=== PATIENT | female | born 1980 | race Caucasian/White ===

== ENCOUNTER 2016-09-15 19:41 | Emergency (ER) | payer OTHER ==
--- NOTE | 2016-09-15 20:23 | ERNOTE ---
Lower Extremity HPI - Narrative Date of Service: 09/15/16 - General Lower Extremities Pain: foot: left Time Seen by Provider: 09/15/16 19:51 Source: patient Exam Limitations: no limitations - Immun/Allergies/Home Medications Immunizations: IMMUNIZATION HX Immunizations Up to Date Yes History of Influenza Vaccine Yes Hx Pneumococcal Vaccination No Allergies/Adverse Reactions: Allergies Allergy/AdvReac Type Severity Reaction Status Date / Time codeine Allergy Itching Verified 09/15/16 19:55 Home Medications: HOME MEDICATIONS FLUoxetine HCL [Prozac] 10 mg PO DAILY 09/15/16 [Last Taken Unknown] HYDROcodone/ACETAMINOPHEN [Ventura 5-325] 1 each PO Q8H PRN #8 tablet 09/15/16 [ Last Taken Unknown] - History of Present Illness Narrative: Patient presents to the ED for left foot and toe pain. She relates that she kicked a box today. It was a heavy box. She had immediate pain in the right toe and lateral foot. no ankle pain. no other injuries. No focal N/T/W. Pain worse with movement and palpation. No laceration. No fall. No other pain. Pain moderate right now. She relates she has broken her little toe many times in the past. Occurred: other - today Location of Incident: home Method of Injury: Reports: direct blow Loss of Consciousness: Reports: no loss of consciousness Modifying Factors - (Improves): Reports: rest Modifying Factors - (Worsens): Reports: movement Associated Symptoms: Denies: unable to bear weight, weakness, sensory loss Other Injuries: Reports: none Subsequent Symptoms: Denies: sensory loss, numbness, motor loss Prior Treament: Denies: recently seen Review of Systems - Review of Systems Constitutional: Absent: fever - Patient's Past Medical History Patient History - Medical: No pertinent hx Patient History - Cardiac/Respiratory: No pertinent hx Patient History - Cancer: No Hx of Cancer Patient History - Surgical Procedures: , D & C Patient History - Other: None - Social History Living Situations: home Psych History: Hx of Anxiety, Hx of Depression, Current tx/ever been on anti- depressants or anti-anxiety meds Smoking Status: Former smoker Have you smoked in the past 12 months: No Alcohol Use: rarely Drug Use: none - Immunizations Immunizations Up to Date: Yes Hx Pneumococcal Vaccination: No History of Influenza Vaccine: Yes Physical Exam - Physical Exam General Appearance: Present: alert, no apparent distress Eye Exam: Normal inspection: bilateral Cardiovascular/Chest: Present: normal peripheral pulses Extremity Exam: Present: other - Tenderness lateral aspect of foot diffuselt. No laceration. Strong DP pulse. No ankle tendenress or proximal tenderness. Achilles intact by palpation. No nailbed injury. No gross instability of any joints. Neurological Exam: Present: alert, normal mood/affect, no motor/sensory deficits , other - pain limits exam somewhat, no clear acute focal motor or sensory deficits. Skin Exam: Present: normal color, warm/dry, other - no laceration ED Progress - Vital Signs Vital Signs: Vital Signs 09/15/16 19:51 Temperature 37.2 C Pulse Rate 106 H Respiratory 18 Rate Blood Pressure 147/75 O2 Sat by Pulse 99 Oximetry - X-Ray X-Ray #1 X-Ray: foot Interpretation: Interp. by me X-ray Comments: No concurrent radiology readings as is after hours. Patient undertands this. No clear acute Fx. 5th toe IP joint somewhat wide but no clear dislocation or fracture. X-Ray #2 X-Ray: toe Interpretation: Reviewed by me X-ray Comments: 5th toe see above - Progress/Reassessment Chief Complaint: Foot Injury/Pain Progress Note-Subjective: 09/15/16 20:30 Randal tape and flat bottomed post op shoe. She understands x-ray will be read tomorrow by radiology. She states she gets itchy with codeine but has taken vicodin without difficulty. Will Rx vicodin, short course. No compartment syndrome. No acute life or limb threat identified. Departure Clinical Impression: Foot injury - Departure Disposition: Home self-care Condition: Stable Instructions: Musculoskeletal Pain Additional Instructions: Rest. Randal tape and wooden shoe. Ice. Elevate. No driving with pain medications. Follow-up for a re-check with your doctor in 3 days. Radiology report should be available tomorrow. Return for increased pain or if your condition worsens or changes in any way. Prescriptions: HYDROcodone/ACETAMINOPHEN [Ventura 5-325] 1 each PO Q8H PRN #8 tablet PRN Reason: Pain
[2016-09-15] MEDS ORDERED: HYDROcodone/ACETAMINOPHEN 1 EACH TABLET PO PRN (20:26)
[2016-09-15] MEDS ORDERED: HYDROcodone/ACETAMINOPHEN 1 EACH TABLET PO ONE (20:43)
[2016-09-15] MEDS ORDERED: HYDROcodone/ACETAMINOPHEN 1 EACH TABLET ONE (20:47)
[2016-09-15 20:50] VITALS: BP 130/72
== END 2016-09-15 20:57 | disposition home or self-care (01) ==
LOC: ER 19:41
DX: S99.922A Unspecified injury of left foot, initial encounter (principal); Z87.891 Personal history of nicotine dependence; W22.8XXA Striking against or struck by other objects, initial encounter; Y92.009 Unspecified place in unspecified non-institutional (private) residence as the place of occurrence of the external cause